=== PATIENT | female | born 1960 | race American Indian/Alaskan Native ===

== ENCOUNTER 2017-04-28 09:59 | Emergency (ER) | payer OTHER ==
[2017-04-28 10:37] VITALS: BP 156/72
[2017-04-28] MEDS ORDERED: MOTRIN PO ONE (11:03)
[2017-04-28] MEDS ORDERED: NORCO 5/325 PO ONE (11:03)
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
== END 2017-04-28 12:45 | disposition home or self-care (01) ==
LOC: ED 09:59
DX: M79.1 Myalgia (principal); M54.5 Low back pain; V49.49XA Driver injured in collision with other motor vehicles in traffic accident, initial encounter; Y93.89 Activity, other specified; Y92.89 Other specified places as the place of occurrence of the external cause; Y99.8 Other external cause status
CPT/HCPCS: 72040; 72100